=== PATIENT | female | born 1980 | race Hispanic/Latino ===

== ENCOUNTER 2019-01-13 08:46 | Outpatient (CLI) | payer BC ==
--- NOTE | 2019-01-13 09:35 | MMO ---
Left Breast MAMMO Unilat [facility]ag [facility] LT+[facility]USSELL. CLINICAL HISTORY: Patient is 38 years old and is seen for diagnostic exam. The patient has no family history of breast cancer. The patient has no personal history of cancer. VIEWS: The views performed were: left craniocaudal spot compression with tomosynthesis; left mediolateral oblique spot compression with tomosynthesis; and left mediolateral with tomosynthesis. FILMS COMPARED: The present examination has been compared to prior imaging studies performed at [facility] on 10/21/2018, and at [facility] on 01/13/2019. MAMMOGRAM FINDINGS: There are scattered fibroglandular densities. There are no suspicious masses, suspicious calcifications, or new areas of architectural distortion. IMPRESSION: THERE IS NO MAMMOGRAPHIC EVIDENCE OF MALIGNANCY. THE QUESTIONABLE ARCHITECTURAL DISTORTION DID NOT PERSIST WITH THE ADDITIONAL VIEWS. ULTRASOUND IS NEGATIVE. A ROUTINE FOLLOW-UP MAMMOGRAM AT AGE 41 IS RECOMMENDED. THE RESULTS OF THIS EXAM WERE SENT TO THE PATIENT. ACR BI-RADS Category 2 - Benign finding MAMMOGRAPHY NOTE: 1. A negative mammogram report should not delay a biopsy if a dominant of clinically suspicious mass is present. 2. Approximately 10% to 15% of breast cancers are not detected by mammography. 3. Adenosis and dense breasts may obscure an underlying neoplasm.
--- NOTE | 2019-01-13 10:05 | ULT ---
LEFT BREAST ULTRASOUND: HISTORY: Followup abnormal mammogram. FINDINGS: There is an area of some asymmetric breast tissue in the upper outer aspect of the left breast on argelia or mammogram. This area is evaluated with ultrasound. No evidence for solid or cystic mass. IMPRESSION: Normal left breast ultrasound. Minimal asymmetric glandular tissue. No evidence of mass or cyst. BIRADS category 2, benign findings. Continued followup screening mammography at least by age 40. POS: OFF
== END 2019-01-13 08:47 | disposition home or self-care (01) ==
LOC: BICMAMMO 08:46
PROVIDERS: ATTEND Obstetrics & Gynecology
DX: R92.8 Other abnormal and inconclusive findings on diagnostic imaging of breast (principal); N64.89 Other specified disorders of breast
CPT/HCPCS: G0279